=== PATIENT | female | born 1985 | race Caucasian/White ===

== ENCOUNTER → 2016-09-01 | Outpatient (CLI) | payer OTHER ==
--- NOTE | 2016-09-01 08:57 | US ---
Limited Right Upper Quadrant Ultrasound History: Right upper quadrant pain. Comparison: None available. Findings: The liver has normal echotexture and contour. There is no intrahepatic biliary dilatation. The common bile duct measures 2 mm and is normal. The gallbladder is normal. The right kidney measure s 10.0 cm and has normal echotexture and contour without hydronephrosis. The visible aorta is normal caliber. The visible portions of the pancreas are normal with limited visualization of the pancreati c head and tail. Impression: Normal right upper quadrant ultrasound.
== END ==
LOC: BMCIMAGING 07:51
PROVIDERS: ATTEND Internal Medicine
DX: R10.11 Right upper quadrant pain (principal)

== ENCOUNTER → 2016-12-29 | Outpatient (CLI) | payer OTHER | LOC: BRMIMAGING 08:50 | PROVIDERS: ATTEND Internal Medicine | DX: M25.561 Pain in right knee (principal); M25.562 Pain in left knee | CPT/HCPCS: 73562-PO ==

== ENCOUNTER → 2018-11-04 | Outpatient (CLI) | payer OTHER | LOC: BRMIMAGING 13:30 | PROVIDERS: ATTEND Obstetrics & Gynecology | DX: N63.20 Unspecified lump in the left breast, unspecified quadrant (principal) | CPT/HCPCS: 76641-PO ==